=== PATIENT | male | born 1965 | race African-American/Black ===

== ENCOUNTER 2021-12-22 12:54 | Emergency (ER) | payer BC, SELFPAY ==
[2021-12-22 13:16] VITALS: BP 152/81; PULSE 83; RESP 20; TEMP 36.9; O2SAT 100; BMI 29.3
--- NOTE | 2021-12-22 13:41 | ED_ITS ---
HPI - Back Pain/Injury General Chief Complaint: Back Injury/Pain Stated Complaint: Low back pain Time Seen by Provider: 12/22/21 13:23 History of Present Illness HPI Narrative: This 56-year-old male comes in with low back pain radiating down his right leg. These symptoms started yesterday and became worse significantly over this time. He states that he had similar symptoms about 5 years ago for which she did receive a intramuscular injection of a steroid. He does not describe any injury event or strenuous activity recently. Related Data Previous Rx's Medication Instructions Recorded cyclobenzaprine 10 mg tablet 10 mg PO TID #15 tabs 12/22/21 hydrocodone 5 mg-acetaminophen 325 1 tab PO Q4-6H PRN pain #15 tabs 12/22/21 mg tablet ketorolac 10 mg tablet 10 mg PO Q8H 5 days #15 tabs 12/22/21 methylprednisolone 4 mg tablets in See Rx Instructions PO .COMPLEX 12/22/21 a dose pack (Medrol (Nikhil)) #21 ea Allergies Allergy/AdvReac Type Severity Reaction Status Date / Time No Known Drug Allergies Allergy Verified 12/22/21 13:20 Review of Systems Status of ROS: Reports: 10 or more systems reviewed and unremarkable except as noted in History and below Narrative: Constitutional: No fevers, no weight gain or loss. Eyes: No discharge. No vision changes. HENT: No congestion, no sore throat, no ear pain. Cardiovascular: No chest pain, no palpitations. Respiratory: No shortness of breath, no wheezes, no cough. Gastrointestinal: No abdominal pain, no vomiting, no diarrhea. Genitourinary: No dysuria, no hematuria. Musculoskeletal: Normal range of motion. Low back pain as described above. Skin: No rashes, no pruritis. Neurological: No dizziness, weakness, sensory change, speech change. Endo/Heme/Allergies: No bruising or bleeding. No polydipsia. Pysch: no suicidality, no anxiety, no insomnia. All other systems reviewed and are negative. PFSH PFS Social History Smoking Status: Never smoker Do you use any of these nicotine containing products: None Second hand tobacco smoke exposure: No How often do you have a drink containing alcohol: never How often do you have six or more drinks on one occasion: Never AUDIT-C Alcohol total score: 0 Non-prescribed substance use: denies use Exam Narrative: Exam Narrative: Constitutional: Well-developed, well-nourished, no acute distress. HEENT: Normocephalic, atraumatic. Neck: Normal range of motion. Nontender. Supple. Heart: Regular. No murmurs. Normal rate. Intact distal pulses. Lungs: Clear to auscultation. No chest discomfort. No wheezes, rhonchi, or rales. Abdomen: Normal bowel sounds. Nontender. No rebound tenderness. Genitalia: Deferred. Back: Straight leg raise is positive at about 30? when raising the right leg. Extremities: Normal range of motion. No injury. Skin: Intact. No rash. Warm. No erythema or pallor. Neurologic: No altered sensation. No weakness. Alert and oriented. Psychiatric: No suicidality. No anxiety or depression. No insomnia. Nursing notes and vitals signs are reviewed. Const: Vital Signs, click to edit/add: Vital Signs - 24 hr 12/22/21 13:16 12/22/21 15:10 Temperature 98.5 F 98.4 F Pulse Rate [Right Pulse Oximeter] 83 88 Respiratory Rate 20 18 Blood Pressure [Ri ght Upper Arm] 152/81 H 129/71 Pulse Oximetry 100 99 Oxygen Delivery Me thod Room Air Room Air Course Vital Signs Vital signs: Initial Vital Signs Temperature 98.5 F 12/22/21 13:16 Temperature Source Temporal Artery Scan 12/22/21 13:16 Pulse Rate 83 12/22/21 13:16 Pulse Rhythm 12/22/21 13:16 Respiratory Rate 20 12/22/21 13:16 Blood Pressure 152/81 H 12/22/21 13:16 Blood Pressure Mean 104 12/22/21 13:16 Blood Pressure Position Sitting 12/22/21 13:16 Pulse Oximetry 100 12/22/21 13:16 Oxygen Delivery Method 12/22/21 13:16 Vital Signs Temperature 98.5 F 12/22/21 13:16 Pulse Rate 83 12/22/21 13:16 Respiratory Rate 20 12/22/21 13:16 Blood Pressure 152/81 H 12/22/21 13:16 Pulse Oximetry 100 12/22/21 13:16 Oxygen Delivery Method 12/22/21 13:16 Temperature 98.4 F 12/22/21 15:10 Pulse Rate 88 12/22/21 15:10 Respiratory Rate 18 12/22/21 15:10 Blood Pressure 129/71 12/22/21 15:10 Pulse Oximetry 99 12/22/21 15:10 Oxygen Delivery Method 12/22/21 15:10 MDM - Back Pain/Injury MDM Narrative Medical decision making narrative: This patient comes in with symptoms typical of a lumbar radiculopathy. He has pain radiating down his right leg indicating nerve impingement along the way. I did discuss the role of imaging but indicated that we typically do not do any imaging when there is not a mechanism of injury involved. He may need MRI in the future. He is planning to travel back to his home in [place] when he is able. He did receive prescriptions for Medrol Dosepak, Toradol, Flexeril, and a few tablets of [place]. Discharge Plan Discharge Clinical Impression: Lumbar radiculopathy Patient Disposition: Home, Self-Care Condition: Unchanged Additional Instructions: Take medication as needed and indicated. Follow up with MD or consider a visit to a spine clinic. Solu-medrol 125mg given IM today at 2:50pm on 12/22/2021 Prescriptions: New cyclobenzaprine 10 mg tablet 10 mg PO TID Qty: 15 0RF ketorolac 10 mg tablet 10 mg PO Q8H 5 Days Qty: 15 0RF methylprednisolone [Medrol (Nikhil)] 4 mg tablets,dose pack See Rx Instructions .ROUTE .COMPLEX Qty: 21 0RF Rx Instructions: orally per package directions hydrocodone-acetaminophen 5-325 mg tablet 1 tab PO Q4-6H PRN (Reason: pain) Qty: 15 0RF Stand Alone Forms: [facility] Info Instructions
[2021-12-22] MEDS: METHYLPREDNISOLONE SOD SUCC 62.5 MG/ML (125) 125 MG IM (14:51)
[2021-12-22 15:10] VITALS: BP 129/71; PULSE 88; RESP 18; TEMP 36.9; O2SAT 99
== END 2021-12-22 15:19 | disposition home or self-care (01) ==
LOC: ED 14:16
PROVIDERS: Emergency Provider Emergency Medicine Emergency Medical Services
DX: M54.16 Radiculopathy, lumbar region (principal)
CPT/HCPCS: 96372; 99283; 99284; J2930